=== PATIENT | female | born 1995 | race Caucasian/White ===

== ENCOUNTER 2016-11-16 16:19 | Inpatient (IN) | payer SELFPAY ==
[~2016-11-16] VITALS: Ht 162.6 cm; Wt 111.2 kg
--- NOTE | ~2016-11-16 | O ---
[place], [place] OPERATIVE NOTE NAME: [id number] UNIT #: [id number] ROOM: 516 DOCTOR: JEAN TIWARI MD BIRTHDATE: [birth year] DOS: 11/17/2016 PREOPERATIVE DIAGNOSIS: Acute appendicitis. POSTOPERATIVE DIAGNOSIS: Acute appendicitis. PROCEDURE: Laparoscopic appendectomy. SURGEON: Jean Tiwari MD. GRIEVANCE AND APPEALS COORDINATOR: MS3. ANESTHESIA: General with endotracheal intubation. INDICATIONS: This is a 21-year-old lady who came into the Emergency Room with upper abdominal pain. A CAT scan showed acute appendicitis. It was decided to take the patient to the operating room for the above-mentioned procedure. The procedure and its complications explained to the patient in detail preoperatively. Complications that were discussed included but were not limited to bleeding, infection, hematoma/seroma/abscess formation, prolonged postoperative pain, and damage to underlying vital structures. She agreed to proceed. DESCRIPTION OF PROCEDURE: After identifying the patient, the patient was brought to the operating suite and laid in the supine position. After induction of general anesthesia, a Rose catheter was placed and the parts were then painted and draped in the usual sterile fashion. Timeout procedure was called. An incision below the umbilicus in the vertical fashion was made. The skin and the subcutaneous tissue were incised. The fascia was incised and 2 stay sutures were taken on either side. The peritoneum was opened and a 12-mm Jm port was introduced into the peritoneal cavity. A pneumoperitoneum was created. Under direct vision, left lower quadrant incision of 10 mm and a 5-mm incision was made in the suprapubic region and appropriate sized ports were introduced. The patient was placed in a Trendelenburg right side up position. The cecum was mobilized and the appendix was identified, it was found to be acutely inflamed. It was held up with the help of an Endo Denice forceps. Thereafter, with the help of an Endo-SAI stapler, the base and the mesoappendix were stapled across. The appendix was placed in an EndoCatch bag and sent for histopathological diagnosis. Thereafter, hemostasis was confirmed and the ports were removed under direct vision and there was no bleeding seen. The umbilical port was removed and the 2 stay sutures were tied together. Thereafter, the subcutaneous tissue was irrigated and the edges of the skin were infiltrated with local anesthesia (1% plain lidocaine). They were then approximated with the help of 4-0 Vicryl in a subcuticular running fashion. Dressings were given to all the 4 incisions. There were no complications. The patient was extubated and the Rose catheter was removed and she was brought back to the recovery room in a stable fashion. Dr. Jean Tiwari, the attending surgeon, was present throughout the operating case. [place], [place] OPERATIVE NOTE NAME: ANA LUISA CERVANTESERRA DEANGELO UNIT #: [id number] ROOM: 6 DOCTOR: JEAN TIWARI MD BIRTHDATE: [birth year] Jean Tiwari MD CM:OPRECORD:OPERATIVE NOTE 1102 1153 JEAN TIWARI MD 11/17/16 1153 interface
[~2016-11-16 16:19] MED LIST: BACTRIM DS 8001 TA1 PO; KEFLEX500 MG PO; Motrin,Rufen800 MG PO; NKHM; ULTRAM50 MG PO
[2016-11-16 16:34] VITALS: BP 130/60
[2016-11-16 17:19] LABS: BASO % 0.3 % (0.0-1.0); EOS # 0.1 10*3/uL (0.0-0.4); EOS % 0.6 % (1.0-4.0); HEMATOCRIT 36.1 % (37.0-47.0); HEMOGLOBIN 11.7 g/dl (12.0-16.0); IG # 0.1 10*3/uL (0.0-0.1); LYMPH # 1.9 10*3/uL (1.3-4.4); LYMPH % 13.8 % (27.0-41.0); MEAN CELL VOLUME 87.6 fl (81.0-99.0); MEAN CORPUSCULAR HGB 28.4 pg (27.0-31.0); MEAN CORPUSCULAR HGB CONC 32.4 g/dl (33.0-37.0); MEAN PLATELET VOLUME 9.6 fl (9.6-12.3); MONO # 0.7 10*3/uL (0.1-1.0); MONO % 5.4 % (3.0-9.0); NEUT # 10.8 10*3/uL (2.3-7.9); NEUT % 79.5 % (47.0-73.0); PLATELET COUNT AUTOMATED 259 10*3/uL (130-400); RED BLOOD COUNT 4.12 10*6/uL (4.10-5.10); RED CELL DISTRI WIDTH 13.2 % (0-14.5); WHITE BLOOD COUNT 13.6 10*3/uL (4.8-10.8)
[2016-11-16 17:33] LABS: ALBUMIN 3.7 gm/dl (3.1-4.5); ALKALINE PHOSPHATASE 72 U/L (45-117); BILIRUBIN, TOTAL 0.3 mg/dl (0.2-1.0); BUN 10 mg/dl (7-24); CARBON DIOXIDE 27 mmol/L (21-32); CHLORIDE 105 mmol/L (98-107); EST GLOM FILT AFRICAN AMERICAN > 60 ml/min; GLUCOSE 91 mg/dL (65-99); POTASSIUM 3.8 mmol/L (3.5-5.1); SGOT/AST 21 IU/L (3-35); SGPT/ALT 26 U/L (12-78); SODIUM 140 mmol/L (136-145); TOTAL PROTEIN 7.5 gm/dL (6.4-8.2)
[2016-11-16 17:49] LABS: BILIRUBIN NEGATIVE (NEGATIVE); BLOOD TRACE-LYSED (NEGATIVE); CLARITY SL CLOUDY (CLEAR); COLOR YELLOW (YELLOW); GLUCOSE NEGATIVE (NEGATIVE); KETONE TRACE (NEGATIVE); LEUKO ESTERASE TRACE (NEGATIVE); NITRITE NEGATIVE (NEGATIVE); PH 6.5 (5.0-9.0); PROTEIN NEGATIVE (NEGATIVE); UROBILINOGEN 0.2 E.U./dl (0.2-1.0)
[2016-11-16 18:00] LABS: URINE REFLEX COMMENT YES (NO)
[2016-11-16 18:01] LABS: BACTERIA TRACE
[2016-11-16 18:02] LABS: WBC 16-20 wbc/hpf (0-5)
[2016-11-16 20:00] VITALS: BP 132/67
[2016-11-16] MEDS ORDERED: PRILOSEC20 M1 PO (20:12)
[2016-11-16] MEDS ORDERED: IBU800 MG PO (20:13)
[2016-11-16 20:29] VITALS: BP 132/67
[2016-11-17] VITALS (9 sets, daily range): BP systolic 101–135; BP diastolic 49–71
[2016-11-17 06:03] LABS: BASO % 0.4 % (0.0-1.0); EOS # 0.2 10*3/uL (0.0-0.4); EOS % 1.7 % (1.0-4.0); HEMATOCRIT 32.8 % (37.0-47.0); HEMOGLOBIN 10.3 g/dl (12.0-16.0); LYMPH # 2.8 10*3/uL (1.3-4.4); LYMPH % 29.1 % (27.0-41.0); MEAN CELL VOLUME 89.9 fl (81.0-99.0); MEAN CORPUSCULAR HGB 28.2 pg (27.0-31.0); MEAN CORPUSCULAR HGB CONC 31.4 g/dl (33.0-37.0); MEAN PLATELET VOLUME 10.3 fl (9.6-12.3); MONO # 0.6 10*3/uL (0.1-1.0); MONO % 6.7 % (3.0-9.0); NEUT # 5.9 10*3/uL (2.3-7.9); NEUT % 61.7 % (47.0-73.0); PLATELET COUNT AUTOMATED 227 10*3/uL (130-400); RED BLOOD COUNT 3.65 10*6/uL (4.10-5.10); RED CELL DISTRI WIDTH 13.2 % (0-14.5); WHITE BLOOD COUNT 9.6 10*3/uL (4.8-10.8)
[2016-11-17 06:09] LABS: BUN 10 mg/dl (7-24); CARBON DIOXIDE 29 mmol/L (21-32); CHLORIDE 106 mmol/L (98-107); CHOLESTEROL 166 mg/dL (<200); EST GLOM FILT AFRICAN AMERICAN > 60 ml/min; GLUCOSE 85 mg/dL (65-99); HDL CHOLESTEROL 48 mg/dl (40-60); LDL CHOLESTEROL 104 mg/dL (9-159); POTASSIUM 3.5 mmol/L (3.5-5.1); SODIUM 141 mmol/L (136-145); TRIGLYCERIDES 71 mg/dl (<150); VLDL CHOLESTEROL 14 mg/dL (6-40)
[2016-11-17 06:19] LABS: INTERNATIONAL NORM RATIO 0.9 (2.0-3.5)
[2016-11-17 07:09] LABS: HEMOGLOBIN A1c 5.1 % (4.8-5.6)
[2016-11-17 07:27] LABS: VITAMIN D, 25-HYDROXY 14.7 ng/mL (30-100)
[2016-11-17 07:28] LABS: FOLIC ACID 9.35 ng/mL (>5.38)
[2016-11-17] MEDS ORDERED: IBU800 MG PO (14:10)
[2016-11-17] MEDS ORDERED: Zofran4 MG PO (14:11)
[2016-11-17] MEDS ORDERED: VITAMIN D31000 UNIT PO (14:16)
[2016-11-17] MEDS ORDERED: B12100 MC1 PO (14:16)
[2016-11-17] MEDS ORDERED: IRON325 M1 PO (14:16)
== END 2016-11-17 14:58 | disposition home or self-care (01) | DRG 343 ==
LOC: ED 16:19 → EDHOLD 19:10 → 5E 19:10
PROVIDERS: Emergency Medicine; Internal Medicine
PROC: 0DTJ4ZZ Resection of Appendix, Percutaneous Endoscopic Approach (ICD-10-PCS; principal; 2016-11-17)
DX: K35.80 Unspecified acute appendicitis (principal); E53.8 Deficiency of other specified B group vitamins; K58.9 Irritable bowel syndrome, unspecified; D72.825 Bandemia; D64.9 Anemia, unspecified; K21.9 Gastro-esophageal reflux disease without esophagitis; F17.210 Nicotine dependence, cigarettes, uncomplicated; Z71.6 Tobacco abuse counseling; Z80.9 Family history of malignant neoplasm, unspecified; Z80.3 Family history of malignant neoplasm of breast; Z88.8 Allergy status to other drugs, medicaments and biological substances

== ENCOUNTER 2016-12-19 18:47 | Emergency (ER) | payer SELFPAY ==
[~2016-12-19] VITALS: Ht 165.1 cm; Wt 90.7 kg
[~2016-12-19 18:47] MED LIST changes: +B12100 MC1 PO; +IBU800 MG PO; +IRON325 M1 PO; +PRILOSEC20 M1 PO; +VITAMIN D31000 UNIT PO; +Zofran4 MG PO
[2016-12-19 18:53] VITALS: BP 149/61
[2016-12-19 19:19] LABS: BASO # 0.1 10*3/uL (0.0-0.1); BASO % 0.4 % (0.0-1.0); EOS # 0.1 10*3/uL (0.0-0.4); EOS % 0.8 % (1.0-4.0); HEMATOCRIT 35.9 % (37.0-47.0); HEMOGLOBIN 11.5 g/dl (12.0-16.0); LYMPH # 2.9 10*3/uL (1.3-4.4); LYMPH % 20.8 % (27.0-41.0); MEAN CELL VOLUME 88.4 fl (81.0-99.0); MEAN CORPUSCULAR HGB 28.3 pg (27.0-31.0); MEAN PLATELET VOLUME 9.6 fl (9.6-12.3); MONO # 0.9 10*3/uL (0.1-1.0); MONO % 6.3 % (3.0-9.0); NEUT % 71.2 % (47.0-73.0); PLATELET COUNT AUTOMATED 297 10*3/uL (130-400); RED BLOOD COUNT 4.06 10*6/uL (4.10-5.10); RED CELL DISTRI WIDTH 13.1 % (0-14.5); WHITE BLOOD COUNT 14.1 10*3/uL (4.8-10.8)
[2016-12-19 19:38] LABS: ALBUMIN 4.1 gm/dl (3.1-4.5); ALKALINE PHOSPHATASE 86 U/L (45-117); BUN 12 mg/dl (7-24); CHLORIDE 103 mmol/L (98-107); CREATININE 0.68 mg/dL (0.55-1.02); POTASSIUM 3.3 mmol/L (3.5-5.1); SGOT/AST 18 IU/L (3-35); SGPT/ALT 22 U/L (12-78); SODIUM 138 mmol/L (136-145)
[2016-12-19 19:43] LABS: BILIRUBIN NEGATIVE (NEGATIVE); BLOOD NEGATIVE (NEGATIVE); CLARITY SL CLOUDY (CLEAR); COLOR YELLOW (YELLOW); GLUCOSE NEGATIVE (NEGATIVE); KETONE NEGATIVE (NEGATIVE); LEUKO ESTERASE 2+ (NEGATIVE); NITRITE NEGATIVE (NEGATIVE); PH 5.5 (5.0-9.0); SPECIFIC GRAVITY >= 1.030 (1.005-1.030); UROBILINOGEN 0.2 E.U./dl (0.2-1.0)
[2016-12-19 20:05] LABS: BACTERIA 2+; EPITHELIAL CELLS 16-20; WBC 21-30 wbc/hpf (0-5)
== END 2016-12-19 22:56 | disposition home or self-care (01) ==
LOC: ED 18:47
PROVIDERS: Nurse Practitioner Family
DX: N75.0 Cyst of Bartholin's gland (principal); N39.0 Urinary tract infection, site not specified; K21.9 Gastro-esophageal reflux disease without esophagitis; K58.9 Irritable bowel syndrome, unspecified; F17.200 Nicotine dependence, unspecified, uncomplicated; E66.01 Morbid (severe) obesity due to excess calories; Z90.49 Acquired absence of other specified parts of digestive tract; Z79.899 Other long term (current) drug therapy; Z88.6 Allergy status to analgesic agent; Z88.5 Allergy status to narcotic agent

== ENCOUNTER → 2018-05-18 | Outpatient (CLI) | payer BC ==
[2018-05-18 14:24] LABS: HEMOGLOBIN 13.9 g/dl (12.0-16.0); MEAN CELL VOLUME 93.3 fl (81.0-99.0); MEAN CORPUSCULAR HGB 30.9 pg (27.0-31.0); MEAN CORPUSCULAR HGB CONC 33.1 g/dl (33.0-37.0); MEAN PLATELET VOLUME 10.2 fl (9.6-12.3); RED BLOOD COUNT 4.5 10*6/uL (4.10-5.10); RED CELL DISTRI WIDTH 12.2 % (0-14.5); WHITE BLOOD COUNT 8.1 10*3/uL (4.8-10.8)
[2018-05-18 14:45] LABS: ALBUMIN 3.9 gm/dl (3.1-4.5); ALKALINE PHOSPHATASE 76 U/L (45-117); BUN 17 mg/dl (7-24); CHLORIDE 105 mmol/L (98-107); CHOLESTEROL 192 mg/dL (<200); CREATININE 0.61 mg/dL (0.55-1.02); HDL CHOLESTEROL 64 mg/dl (40-60); LDL CHOLESTEROL 111 mg/dL (9-159); SGOT/AST 14 IU/L (3-35); SGPT/ALT 24 U/L (12-78); SODIUM 139 mmol/L (136-145); TOTAL PROTEIN 7.8 gm/dL (6.4-8.2); TRIGLYCERIDES 83 mg/dl (<150); VLDL CHOLESTEROL 17 mg/dL (6-40)
== END | disposition home or self-care (01) ==
LOC: LAB 13:51
PROVIDERS: Family Medicine
DX: K58.9 Irritable bowel syndrome, unspecified (principal); R53.83 Other fatigue; E55.9 Vitamin D deficiency, unspecified; R10.9 Unspecified abdominal pain

== ENCOUNTER → 2019-11-08 | Outpatient (CLI) | payer BC | END | disposition home or self-care (01) | LOC: COVID19 01:17 | DX: R50.9 Fever, unspecified (principal); Z20.828 Contact with and (suspected) exposure to other viral communicable diseases ==

== ENCOUNTER → 2020-02-19 | Outpatient (CLI) | payer BC, OTHER | END | disposition home or self-care (01) | LOC: COVID19 00:26 | PROVIDERS: ATTEND Family Medicine | DX: Z20.828 Contact with and (suspected) exposure to other viral communicable diseases (principal) ==

== ENCOUNTER 2020-06-23 07:15 | Emergency (ER) | payer OTHER ==
[~2020-06-23] VITALS: Ht 160 cm; Wt 90.7 kg
[2020-06-23 07:21] VITALS: BP 122/61
[2020-06-23 08:21] LABS: BASO % 0.5 % (0.0-1.0); EOS # 0.1 10*3/uL (0.0-0.4); EOS % 1.7 % (1.0-4.0); HEMATOCRIT 40.2 % (37.0-47.0); LYMPH # 2.6 10*3/uL (1.3-4.4); LYMPH % 32.8 % (27.0-41.0); MEAN CELL VOLUME 88.9 fl (81.0-99.0); MEAN CORPUSCULAR HGB 28.3 pg (27.0-31.0); MEAN CORPUSCULAR HGB CONC 31.8 g/dl (33.0-37.0); MEAN PLATELET VOLUME 9.5 fl (9.6-12.3); MONO # 0.5 10*3/uL (0.1-1.0); MONO % 6.3 % (3.0-9.0); NEUT # 4.7 10*3/uL (2.3-7.9); NEUT % 58.3 % (47.0-73.0); PLATELET COUNT AUTOMATED 278 10*3/uL (130-400); RED BLOOD COUNT 4.52 10*6/uL (4.10-5.10); RED CELL DISTRI WIDTH 12.9 % (0-14.5); WHITE BLOOD COUNT 8.1 10*3/uL (4.8-10.8)
[2020-06-23 08:39] LABS: ALBUMIN 3.5 gm/dl (3.1-4.5); ALKALINE PHOSPHATASE 88 U/L (45-117); BETA-HCG, QUANT < 1.0 mIU/mL (1-3); BUN 13 mg/dl (7-24); CHLORIDE 108 mmol/L (98-107); CREATININE 0.73 mg/dL (0.55-1.02); LIPASE 67 U/L (73-393); POTASSIUM 3.4 mmol/L (3.5-5.1); SGOT/AST 16 IU/L (3-35); SGPT/ALT 39 U/L (12-78); SODIUM 142 mmol/L (136-145); TOTAL PROTEIN 7.1 gm/dL (6.4-8.2)
[2020-06-23 09:01] LABS: BILIRUBIN Negative (Negative); BLOOD Negative (Negative); CLARITY Cloudy (Clear); COLOR Yellow (Yellow); GLUCOSE Negative (Negative); KETONE Negative (Negative); LEUKO ESTERASE Negative (Negative); NITRITE Negative (Negative); PH 5.5 (4.5-8.0); SPECIFIC GRAVITY 1.025 (1.001-1.030); UROBILINOGEN 0.2 E.U./dl (0.0-1.0)
[2020-06-23 09:18] LABS: BACTERIA TRACE; EPITHELIAL CELLS 31-40; MUCOUS 3+; RBC 0-2 rbc/hpf (0-2); WBC 0-2 wbc/hpf (0-5)
== END 2020-06-23 12:54 | disposition left against medical advice (07) ==
LOC: ED 07:15
PROVIDERS: Emergency Medicine
DX: I88.0 Nonspecific mesenteric lymphadenitis (principal); F17.200 Nicotine dependence, unspecified, uncomplicated; Z88.6 Allergy status to analgesic agent; Z98.890 Other specified postprocedural states; Z53.29 Procedure and treatment not carried out because of patient's decision for other reasons

== ENCOUNTER 2022-04-13 14:18 | Emergency (ER) | payer OTHER ==
[~2022-04-13] VITALS: Ht 162.5 cm; Wt 113.4 kg
[2022-04-13 14:37] VITALS: BP 127/63
[2022-04-13 15:06] LABS: BILIRUBIN Negative (Negative); BLOOD 3+ (Negative); CLARITY Turbid (Clear); COLOR Red (Yellow); GLUCOSE Negative (Negative); KETONE Negative (Negative); LEUKO ESTERASE 2+ (Negative); NITRITE Negative (Negative)
[2022-04-13 15:28] LABS: RBC TNTC rbc/hpf (0-2)
[2022-04-13 16:06] LABS: BASO # 0.1 10*3/uL (0.0-0.1); BASO % 0.5 % (0.0-1.0); EOS # 0.1 10*3/uL (0.0-0.4); EOS % 1.2 % (1.0-4.0); HEMATOCRIT 40.9 % (37.0-47.0); LYMPH # 2.9 10*3/uL (1.3-4.4); LYMPH % 32.1 % (27.0-41.0); MEAN CELL VOLUME 88.7 fl (81.0-99.0); MEAN CORPUSCULAR HGB 28.6 pg (27.0-31.0); MEAN CORPUSCULAR HGB CONC 32.3 g/dl (33.0-37.0); MEAN PLATELET VOLUME 9.5 fl (9.6-12.3); MONO # 0.6 10*3/uL (0.1-1.0); MONO % 6.6 % (3.0-9.0); NEUT # 5.4 10*3/uL (2.3-7.9); NEUT % 59.3 % (47.0-73.0); PLATELET COUNT AUTOMATED 324 10*3/uL (130-400); RED BLOOD COUNT 4.61 10*6/uL (4.10-5.10); RED CELL DISTRI WIDTH 12.3 % (0-14.5); WHITE BLOOD COUNT 9.1 10*3/uL (4.8-10.8)
[2022-04-13 16:26] LABS: ALKALINE PHOSPHATASE 71 U/L (46-116); BUN 15 mg/dl (9-23); CHLORIDE 103 mmol/L (98-107); POTASSIUM 3.8 mmol/L (3.4-5.1); SGPT/ALT 64 U/L (10-49); TOTAL PROTEIN 7.2 gm/dL (6.0-8.0)
[2022-04-13 16:28] LABS: B-hCG (QUALITATIVE) NEGATIVE (NEGATIVE)
[2022-04-13] MEDS ORDERED: SEPTDS PO (19:17)
== END 2022-04-13 19:21 | disposition home or self-care (01) ==
LOC: ED 14:18
PROVIDERS: Physician Assistant
DX: N93.8 Other specified abnormal uterine and vaginal bleeding (principal); N39.0 Urinary tract infection, site not specified; Z88.6 Allergy status to analgesic agent; Z87.891 Personal history of nicotine dependence

== ENCOUNTER → 2022-05-13 | Outpatient (CLI) | payer OTHER ==
[~2022-05-13] MED LIST changes: +SEPTDS PO
[2022-05-13 10:39] LABS: FREE T4 1.04 ng/dl (0.89-1.76); THYROID STIM HORMONE (HS) 0.347 uIU/ml (0.550-4.780)
== END | disposition home or self-care (01) ==
LOC: LAB 09:37
PROVIDERS: ATTEND Family Medicine
DX: J02.9 Acute pharyngitis, unspecified (principal); R63.5 Abnormal weight gain; R53.83 Other fatigue

== ENCOUNTER 2024-10-26 12:16 | Emergency (ER) | payer BC ==
[~2024-10-26] VITALS: Ht 160 cm; Wt 117.9 kg
[2024-10-26 12:24] VITALS: BP 151/109
[2024-10-26] MEDS ORDERED: FLUOXETINE HCL10 MG PO (12:24)
[2024-10-26] MEDS ORDERED: OTEZLA30 MG PO (12:25)
[2024-10-26] MEDS ORDERED: Dexamethasone Sodium Phospha 20 MG/5 ML VIAL IM ONE (12:45)
[2024-10-26] MEDS ORDERED: CYCLOBENZAPRINE5 M3 PO (15:28)
[2024-10-26] MEDS ORDERED: MELOXICAM15 MG PO (15:28)
[2024-10-26] MEDS ORDERED: LIDO KING1 EACH T (15:28)
[2024-10-26] MEDS ORDERED: MEDROL DOSEPAK4 MG PO (15:28)
[2024-10-26] MEDS ORDERED: Cyclobenzaprine Hydrochlorid 10 MG TAB PO ONE (15:35)
== END 2024-10-26 15:33 | disposition home or self-care (01) ==
LOC: ED 12:16
DX: M62.830 Muscle spasm of back (principal); M54.50 Low back pain, unspecified; Z88.6 Allergy status to analgesic agent; Z79.899 Other long term (current) drug therapy; Z98.890 Other specified postprocedural states; Z87.891 Personal history of nicotine dependence

== ENCOUNTER 2025-01-26 07:23 | Emergency (ER) | payer BC ==
[~2025-01-26] VITALS: Ht 160 cm; Wt 117.9 kg
[~2025-01-26 07:23] MED LIST changes: +CYCLOBENZAPRINE5 M3 PO; +FLUOXETINE HCL10 MG PO; +LIDO KING1 EACH T; +MEDROL DOSEPAK4 MG PO; +MELOXICAM15 MG PO; +OTEZLA30 MG PO
[2025-01-26 07:30] VITALS: BP 119/80
[2025-01-26] MEDS ORDERED: IBU800 M1 PO (07:59)
== END 2025-01-26 15:40 | disposition home or self-care (01) ==
LOC: ED 07:23
DX: S93.402A Sprain of unspecified ligament of left ankle, initial encounter (principal); F17.210 Nicotine dependence, cigarettes, uncomplicated; Z88.1 Allergy status to other antibiotic agents; Z88.8 Allergy status to other drugs, medicaments and biological substances; X50.1XXA Overexertion from prolonged static or awkward postures, initial encounter; Y93.89 Activity, other specified; Y92.89 Other specified places as the place of occurrence of the external cause; Y99.8 Other external cause status